=== PATIENT | female | born 1980 | race Two or more races ===

== ENCOUNTER 2018-07-07 03:31 | Emergency (ER) | payer BC, OTHER ==
[~2018-07-07] VITALS: Ht 170.2 cm; Wt 52.2 kg
[2018-07-07 03:45] VITALS: BP 108/66
[2018-07-07] MEDS ORDERED: FLUORESCEIN SODIUM OPHTH 1 EA STRIP ONE (03:54)
[2018-07-07] MEDS ORDERED: TETRACAINE HCL/PF 0.5% UD 2 ML BOTTLE ONE (03:54)
[2018-07-07] MEDS ORDERED: FLUORESCEIN SODIUM OPHTH 1 EA STRIP OP ONE (04:00)
[2018-07-07] MEDS ORDERED: oxyCODONE/APAP (5/325 MG) 1 UDTAB TABLET PO ONE (04:30)
[2018-07-07] MEDS ORDERED: IBUPROFEN 400 MG TABLET PO ONE (04:30)
[2018-07-07] MEDS ORDERED: OFLOXACIN 0.3% OPHTH 5 ML BOTTLE LEFTEYE SCH (04:30)
[2018-07-07] MEDS ORDERED: oxyCODONE/APAP (5/325 MG) 1 UDTAB TABLET ONE (04:34)
[2018-07-07] MEDS ORDERED: IBUPROFEN 400 MG TABLET ONE (04:34)
== END 2018-07-07 04:43 | disposition home or self-care (01) ==
LOC: ER 03:32
DX: S05.02XA Injury of conjunctiva and corneal abrasion without foreign body, left eye, initial encounter (principal); X58.XXXA Exposure to other specified factors, initial encounter; Y93.89 Activity, other specified; Y92.89 Other specified places as the place of occurrence of the external cause; Y99.8 Other external cause status
CPT/HCPCS: 99283; A4606; J7060; Z7610

== ENCOUNTER 2018-07-25 20:39 | Emergency (ER) | payer BC ==
[~2018-07-25] VITALS: Ht 170.2 cm; Wt 57.2 kg
--- NOTE | 2018-07-25 21:00 | NUR ---
[facility] PT C/O SHARP RLQ PAIN X4 DAYS. PT STATES SHE IS , PMD RULED OUT ECTOPIC . PT DENIES V/D. PT AAOX4. NAD NOTED. RESPIRATIONS EVEN AND UNLABORED. PT RESTING COMFORTABLY.
--- NOTE | 2018-07-25 21:05 | NUR ---
URINE SAMPLE COLLECTED AND CALLED LAB FOR DIRECT OF REAL ESTATE
--- NOTE | 2018-07-25 21:12 | NUR ---
BELL HOLE DIGGER AT BEDSIDE FOR LABS
[2018-07-25 21:17] LABS: BASOPHILS # (AUTO) 0.1 /CMM (0.0-0.2); EOSINOPHILS % (AUTO) 2.7 % (0.0-6.0); HEMATOCRIT 37 % (33-45); HEMOGLOBIN 12.5 g/dL (11.5-14.8); LYMPHOCYTES # (AUTO) 2.5 /CMM (0.8-4.8); LYMPHOCYTES % (AUTO) 34.5 % (20.0-44.0); MEAN CORPUSCULAR HEMOGLOBIN 31 PG (26.0-33.0); MEAN CORPUSCULAR HGB CONC 34 g/dl (31.0-36.0); MEAN CORPUSCULAR VOLUME 91 fL (82-100); MONOCYTES # (AUTO) 0.5 /CMM (0.1-1.30); MONOCYTES % (AUTO) 7.3 % (2.0-12.0); NEUTROPHILS # (AUTO) 3.8 /CMM (1.8-8.9); NEUTROPHILS % (AUTO) 54.5 % (43.0-81.0); PLATELET COUNT (AUTO) 215 /CMM (150-450); RDW COEFFICIENT OF VARIATION 12.2 (11.5-15.0); RED BLOOD CELL COUNT(AUTO) 4.03 MIL/uL (4.0-5.2); WHITE BLOOD COUNT (AUTO) 7.1 K/uL (4.3-11.0)
[2018-07-25 21:21] LABS: APPEARANCE,URINE Cloudy (CLEAR); BILIRUBIN,URINE Negative (NEGATIVE); BLOOD, URINE Negative Ery/uL (NEGATIVE); COLOR,URINE Yellow (YELLOW); KETONES,URINE Negative (NEGATIVE); LEUKOCYTE ESTERASE ,URINE Negative (NEGATIVE); NITRITE, URINE Negative (NEGATIVE); PROTEIN,URINE Negative (NEGATIVE); UGLUCOSE Negative (NEGATIVE); UROBILINOGEN,URINE 0.2 EU/dL (0.2)
[2018-07-25 21:34] LABS: ALBUMIN 3.8 g/dL (3.4-5.0); BILIRUBIN,DIRECT 0.1 mg/dL (0.0-0.2); BILIRUBIN,TOTAL 0.3 mg/dL (0.2-1.0); CALCIUM, SERUM 8.8 mg/dL (8.5-10.1); CREATININE 0.8 mg/dL (0.6-1.3); POTASSIUM 3.5 mmol/L (3.5-5.1); TOTAL PROTEIN, SERUM 6.6 g/dL (6.4-8.2)
--- NOTE | 2018-07-25 21:35 | NUR ---
PER RADIOLOGY PAGED US TECH
--- NOTE | 2018-07-25 22:06 | NUR ---
US AT BEDSIDE
--- NOTE | 2018-07-25 23:40 | NUR ---
PT RESTING COMFORTABLY IN BED. AAOX4. NAD NOTED. VSS. RESPIRATIONS EVEN AND UNLABORED
--- NOTE | 2018-07-26 00:58 | NUR ---
ULTRASOUND AT BEDSIDE
--- NOTE | 2018-07-26 02:04 | NUR ---
CALLED [facility] FOR ULTRASOUND REPORT
--- NOTE | 2018-07-26 02:29 | NUR ---
PT DISCHARGED. PT AND REFUSED TO SIGN DC PAPERS. RISKS AND BENEFITS EXPLAINED. Patient discharged to home in stable condition. Written and verbal after care instructions given. Patient verbalizes understanding of instruction. Pt ambulatory with a steady gait.
[2018-07-26 02:30] VITALS: BP 120/85
== END 2018-07-26 02:32 | disposition home or self-care (01) ==
LOC: ER 20:42
DX: O26.891 Other specified pregnancy related conditions, first trimester (principal); N13.39 Other hydronephrosis; K76.0 Fatty (change of) liver, not elsewhere classified; R10.9 Unspecified abdominal pain; R45.1 Restlessness and agitation; Z3A.01 Less than 8 weeks gestation of pregnancy
CPT/HCPCS: 36415; 76705 ×2; 76770; 80048; 80076; 81001; 83690; 84702; 84703 ×2; 85025; 86850; 99285; A4606; Z7610; 81000-TC